=== PATIENT | male | born 1955 | race Native Hawaiian/Other Pacific Islander ===

== ENCOUNTER 2022-03-23 17:04 | Emergency (ER) | payer OTHER ==
[~2022-03-23] VITALS: Ht 180.3 cm; Wt 136.1 kg
[2022-03-23 17:10] VITALS: BP 166/78; TEMP 99.2
== END 2022-03-23 19:15 | disposition home or self-care (01) ==
LOC: ED 17:04
DX: J40 Bronchitis, not specified as acute or chronic (principal); R05.8 Other specified cough
CPT/HCPCS: 87502; 87651; 99283